=== PATIENT | female | born 1985 | race Hispanic/Latino ===

== ENCOUNTER 2016-04-22 09:30 | Emergency (ER) ==
[2016-04-22 09:46] VITALS: BP 142/75
[2016-04-22] MEDS ORDERED: PHENERGAN IM ONE (10:25)
[2016-04-22] MEDS ORDERED: BENADRYL IM ONE (10:25)
[2016-04-22] MEDS ORDERED: TORADOL IM ONE (10:25)
--- NOTE | 2016-04-22 10:31 | PROVIDER DOCUMENTATION ---
HPI-EENT General - General Chief Complaint: Facial Pain Stated Complaint: FACIAL NUMBNESS/EYE COMPLAINT Time Seen by Provider: 04/22/16 10:01 Source: patient Allergies/Adverse Reactions: Patient Allergies Allergy/AdvReac Type Severity Reaction Status Date / Time No Known Allergies Allergy Verified 10/07/14 10:03 Home Medications: Home Medication List Medication Instructions Recorded Confirmed Last Taken Type Amoxicillin/Pot Clavulanate 875 mg PO Q12HR #14 tablet 04/22/16 Unknown Rx [Augmentin] Fluticasone 50 Mcg Nasal [place] 1 spray LIS DAILY #1 bottle 04/22/16 Unknown Rx [Flonase] Loratadine/Pse E.r. 24 Hr 1 each PO DAILY #20 tablet 04/22/16 Unknown Rx [Claritin-D 24 Hr] - History of Present Illness-EENT General Nature of Presenting Problem: 30 y/o F c/o L sided facial pain x 1 day. Pt states L frontal and maxillary region painful. Denies any fever, cough, congestion, rhinorrhea, hx of GORDON, photophobia, vision changes, N/V, abd. pain. States pain 9/10. Review of Systems - Adult - REVIEW OF SYSTEMS - ADULT Constitutional: reports: no symptoms reported. denies: chills, fever Eyes: reports: see HPI, eye pain. denies: decreased vision, blurred vision, double vision Ears, Nose, Mouth & Throat: reports: no symptoms reported. denies: sinus problem, nose pain, loose teeth, throat pain Cardiovascular: reports: no symptoms reported Respiratory: reports: no symptoms reported. denies: cough, shortness of breath Gastrointestinal: reports: no symptoms reported. denies: abdominal pain, nausea , vomiting Genitourinary: reports: no symptoms reported. denies: dysuria, frequency Musculoskeletal: reports: no symptoms reported. denies: joint pain, joint swelling Integumentary: reports: no symptoms reported. denies: nail changes, rash Neurological: reports: no symptoms reported. denies: numbness, paresthesia Psychiatric: reports: no symptoms reported Endocrine: reports: no symptoms reported. denies: cold intolerance, heat intolerance Hematologic/Lymphatic: reports: no symptoms reported. denies: easy bruising, prolonged bleeding Allergic/Immunologic: reports: no symptoms reported All Other Systems: Reviewed and Negative Past History - Adult - PAST MEDICAL HISTORY-ADULT Review of Records: reports: Nursing Assessment Review, Medications Reviewed Major Childhood Illnesses: reports: denies history Cardiovascular: reports: denies history Respiratory: reports: denies history Gastrointestinal: reports: denies history Obstetrical/Gynecological: reports: denies history Genitourinary: reports: denies history Musculoskeletal: reports: denies history Neurological: reports: denies history Endocrine/Immune: reports: denies history Other Conditions: reports: denies history - SOCIAL HISTORY Smoking: denies Living Situation: family Physical Exam- EENT - Physical Exam EENT Initial Vital Signs Reviewed: Yes General Appearance: alert, mild distress Eye Exam: bilateral eye: normal inspection, PERRL, EOMI Ear Exam: bilateral ear: auricle normal Nasal Exam: normal inspection, sinus tenderness (L frontal, maxillary) Throat Exam: pharynx normal Neck: supple, normal inspection. negative: lymphadenopathy Respiratory: lungs clear, normal breath sounds. negative: crackles, rales, rhonchi, stridor, wheezing Cardiovascular: regular rate, rhythm. negative: bradycardia, tachycardia Back Exam: normal inspection Extremity: normal gait, normal inspection Integumentary: normal color, normal turgor, warm/dry Neurologic: negative: aphasia, EOM palsy, facial droop, sensory deficit Psych/Mental Status: normal mood/affect, normal thought content, normal thought process, oriented x 3 Progress - XRAY 1 XRAY Study: other (sinus) XRAY Interpretation: mucosal thicking in maxillary sinus, L>R Departure - Departure Time of Disposition Order: 11:37 DIAGNOSIS: Sinusitis Qualifiers: Sinusitis location: maxillary Chronicity: acute Recurrence: not specified as recurrent Qualified Code(s): J01.00 - Acute maxillary sinusitis, unspecified Disposition: HOME 01 Certified Medical Emergency: Emergent Condition: Stable Additional Instructions: Take medications as directed. Follow up with specialist for further management. drink plenty of fluids. Tylenol or motrin for pain/fever. ED Follow Up Instructions: You have been treated by a care provider in the Emergency Department. These instructions are being provided to you so you can have an understanding of how to care for yourself upon discharge. Upon discharge from the Emergency Department, you are responsible for making arrangements for follow-up care by a physician of your choice. Take all prescribed medications as directed. Return to the Emergency Department immediately for any new or worsening symptoms. You may call the Physician Referral phone number at [phone] to obtain a list of Physicians who are taking new patients. Prescriptions: Amoxicillin/Pot Clavulanate [Augmentin] 875 mg PO Q12HR #14 tablet Loratadine/Pse E.r. 24 Hr [Claritin-D 24 Hr] 1 each PO DAILY #20 tablet Fluticasone 50 Mcg Nasal [place] [Flonase] 1 spray LIS DAILY #1 bottle Referrals: Bo Adams MD [Primary Care Provider] - Morales Maldonado MD [STAFF PHYSICIAN] - Attestation - Physician/ MARILEE Attestation Patient care was provided by Advanced Practice Provider:: Yes Advanced Practice Provider:: Kelley Smith Advanced Practice Provider documentation review:: The Mid-level provider documentation, treatment plan and medical decision making was reviewed by the physician who agrees with all treatment and medical decision making by the MLP.
[2016-04-22] MEDS ORDERED: PHENERGAN ONE (10:45)
[2016-04-22] MEDS ORDERED: EPINEPHRINE ONE (12:23)
--- NOTE | 2016-04-22 14:50 | Diag Imaging Result Document ---
PROCEDURE NAME: SINUSES - 04/22/2016 SINUS SERIES 3 VIEWS: FINDINGS: There is mucosal thickening in both maxillary sinuses. The ethmoid, frontal and sphenoid sinuses appear to be clear. IMPRESSION: Chronic maxillary sinusitis.
== END 2016-04-22 11:49 | disposition home or self-care (01) ==
LOC: P.ED 09:30
DX: J01.00 Acute maxillary sinusitis, unspecified (principal); R51 Headache
CPT/HCPCS: 70220; 96372; J0171; J1200; J1885; J2550

== ENCOUNTER 2016-09-13 16:44 | Inpatient (IN) ==
[2016-09-13 17:40] LABS: URINE SOURCE VOIDED
[2016-09-13 17:44] LABS: BILIRUBIN URINE NEGATIVE (NEGATIVE); BLOOD URINE NEGATIVE (NEGATIVE); CLARITY CLEAR (CLEAR); COLOR YELLOW; LEUKOCYTES URINE NEGATIVE (NEGATIVE); NITRITE URINE NEGATIVE (NEGATIVE); UROBILINOGEN URINE NORMAL
[2016-09-13] MEDS ORDERED: LABETALOL IV PRN (18:15)
[2016-09-13 19:24] LABS: MANUAL DIFF NEEDED? NO
[2016-09-13 19:33] LABS: BASO% 0.1 % (0.0-0.8); EOS# 0.19 X1000 (0.0-0.7); EOS% 1.7 % (0.0-10.0); HEMATOCRIT 38.8 % (37.0-47.0); HEMOGLOBIN 13.2 g/dL (12.0-16.0); IMM GRAN# 0.02 X1000 (0.0-0.04); IMM GRAN% 0.2 % (0.0-0.5); LYMPH# 1.98 X1000 (1.2-3.4); LYMPH% 17.2 % (20.5-51.1); MCH 26.8 PG (27-31); MCV 78.9 FL (81-99); MONO# 0.83 X1000 (0.11-0.59); MONO% 7.2 % (1.7-9.3); NEUT% 73.6 % (42.2-75.2); PLT 238 X1000 (130-400); RBC 4.92 XMIL (4.2-5.4)
--- NOTE | 2016-09-13 19:41 | HISTORY AND PHYSICAL ---
CHIEF COMPLAINT: Sent from clinic secondary to uncontrolled diabetes. HISTORY OF PRESENT ILLNESS: This is a 31-year-old, G6, P5-0-0-5 with intrauterine around 33+ 3 weeks by late dating at 29 weeks and 3 days, who presented to [facility] after being sent from clinic for uncontrolled diabetes. The patient was maintained on metformin, however, recent A1c was 7 and diabetic log revealed consistently elevated blood glucose levels. The patient has had limited care with this , with initial presentation at 29 weeks and 3 days. Initial 24 hour urine secondary to albuminuria, history of diabetes and high blood pressure was not performed secondary to patient noncompliance. Patient has good movement. No loss of fluid. No vaginal bleeding. No contractions. She denies headaches, vision changes, right upper quadrant pain. On presentation, the patient's blood pressure was in the high systolic 170s and has run consistently elevated. OBSTETRICAL HISTORY: The patient has had 2 full-term vaginal deliveries and 3 sections. RAMP LEAD HISTORY: Patient denies history of sexually transmitted infections. PAST MEDICAL HISTORY: Obesity, likely type 2 diabetes, possible chronic hypertension. PAST SURGICAL HISTORY: delivery x3. MEDICATIONS: Metformin 500 mg 1 tab p.o. b.i.d. now discontinued, vitamins. ALLERGIES: No known drug allergies. SOCIAL HISTORY: Denies alcohol, tobacco or illicit drug use. FAMILY HISTORY: Significant for hypertension and cardiovascular disease. PHYSICAL EXAMINATION: GENERAL: Well-developed, well-nourished, female, in no acute distress. HEENT: Pupils equally round, reactive to light. Extraocular muscles intact. CHEST: Clear to auscultation bilaterally. CARDIOVASCULAR: Regular rate and rhythm. No murmurs, rubs, or gallops. ABDOMEN: Soft, nontender, gravid. No right upper quadrant tenderness to palpation. EXTREMITIES: No clubbing, cyanosis, or edema. SKIN: No focal lesions. NEUROLOGIC: No focal deficits. DTRs 2+. ASSESSMENT AND PLAN: 1. Intrauterine around 33+ 3 weeks by late dating. 2. Likely type 2 diabetes, uncontrolled. 3. Gestational hypertension versus chronic hypertension, rule out superimposed preeclampsia. 4. Limited care. 5. History of section x3. PLAN: Start a split mix insulin regimen as follows: 44 units of NPH insulin in the morning, 16 units at bedtime, regular insulin 22 units in the morning and 16 units at dinnertime. We will maintain Accu-Cheks q.4 hours. We will start ADA diet. Rule out preeclampsia labs are currently pending. We will start labetalol 200 b.i.d. and titrate up as needed, and use IV labetalol as needed. Should blood pressures present higher than 160/110 preeclampsia, we will start magnesium sulfate. cc: Bo Adams MD
[2016-09-13 19:45] LABS: AGAP 12; ALKALINE PHOSPHATASE 105 U/L (32-104); BUN 14 mg/dL (8-22); CALCIUM 8.8 mg/dL (8.8-10.2); CHLORIDE 103 mmol/L (98-107); COSMO 272; GOT 9 U/L (10-30); GPT 11 U/L (10-36); POTASSIUM 4.2 mmol/L (3.5-5.1); SODIUM 135 mmol/L (136-145); TCO2 20 mmol/L (25-35); URIC ACID 4.1 mg/dL (2.4-5.7)
[2016-09-13] MEDS: TRANDATE PO SCH (21:43)
[2016-09-13] MEDS: HUMULIN N INSULIN (PARKWAY) SUBQ SCH (21:44)
[2016-09-13 23:31] LABS: LDH 140 U/L (135-214)
[2016-09-14] MEDS: HUMULIN R (PARKWAY) SUBQ SCH (08:20)
[2016-09-14] MEDS: HUMULIN N INSULIN (PARKWAY) SUBQ SCH ×3 (09:21→21:20)
[2016-09-14] MEDS: TRANDATE PO SCH ×2 (09:24→21:20)
[2016-09-14] MEDS ORDERED: TYLENOL PO PRN (09:43)
[2016-09-14] MEDS ORDERED: HUMULIN R (PARKWAY) SUBQ SCH (17:00)
[2016-09-15 08:03] VITALS: BP 146/80
[2016-09-15 08:10] LABS: UR CREATININE 161.9 mg/dL (11-20); UR CREATININE TOTAL 1942.8 mg/24 (600-1600)
[2016-09-15 08:20] LABS: UR PROTEIN 337.2 mg/dL
[2016-09-15] MEDS: HUMULIN R (PARKWAY) SUBQ SCH (09:18)
[2016-09-15] MEDS: HUMULIN N INSULIN (PARKWAY) SUBQ SCH (09:19)
[2016-09-15] MEDS: TRANDATE PO SCH (09:19)
[2016-09-15] MEDS ORDERED: GLUCOPHAGE PO SCH (17:00)
--- NOTE | 2016-09-15 17:50 | DISCHARGE SUMMARY ---
ADMISSION DATE: 09/14/2016 DISCHARGE DATE: 09/15/2016 ADMIT DIAGNOSES: 1. at 33-1/2 weeks. 2. Diabetes poorly controlled. 3. Hypertension. CONDITION: Stable. DIET: 2200 calorie ADA diet. Low salt. MEDICATIONS: vitamins with iron. Labetalol 200 twice a day. NPH 44 in the morning, 16 in the evening and regular 22 at breakfast and 16 at supper. She is to follow up next week for an appointment. Please refer to Ms. Garcia's records. She was admitted with uncontrolled sugars, elevated hemoglobin A1c and hypertension. She was admitted and started on 24 hour urine. Blood pressure was high so she was given labetalol 200 twice a day with good results and she was started on an insulin regimen which very easily controlled her sugars so now she is hospital day 3 with good insulin control, blood pressure control, desiring discharge. PHYSICAL EXAM: Neck: Supple. Lungs: Clear. Heart: Regular sinus rhythm. Abdomen: Gravid. Fundal height of 34. +2 lower extremity edema. PERTINENT LABORATORY VALUES: From hospital stay, hemoglobin and hematocrit of 13/38, platelets of 238,000. Her BUN and creatinine are normal at 14 and 0.5. Liver functions are normal. Uric acid is normal and blood glucose has been well controlled on the above insulin regimen. 24 hour urine showed total volume of 1200 with 4 g of glucose spillage. That is up slightly from 2 weeks ago when she spilled 3+ g protein. As blood pressure has normalized and no other evidence of preeclampsia I think this is more of a chronic issue for her so we will discharge with above instructions. cc: Jony Irvin MD
== END 2016-09-15 13:00 | disposition home or self-care (01) ==
LOC: P.NBC 16:44 → P.LD 17:02
PROVIDERS: ADMIT Obstetrics & Gynecology; ATTEND Obstetrics & Gynecology

== ENCOUNTER 2016-10-03 04:58 | Inpatient (IN) ==
--- NOTE | 2016-10-03 04:06 | HISTORY AND PHYSICAL ---
HISTORY OF PRESENT ILLNESS: Patient is a 31-year-old, G6, P5-0-0-5 with intrauterine at 36 weeks and 2 days. Patient with a history of pregestational diabetes poorly controlled as well as hypertension. Patient with testing for lung maturity that returned suggestive of mature lung so the decision made to proceed with repeat section with bilateral tubal ligation. PAST MEDICAL HISTORY: Diabetes, hypertension. PAST SURGICAL HISTORY: section x2. OBSTETRICAL HISTORY: 1. Spontaneous vaginal delivery x2. 2. section x3. 3. History of prior section. POWER AND RECOVERY SHIFT ENGINEER HISTORY: Denies history of dysplasia. SOCIAL HISTORY: No tobacco use. PHYSICAL EXAMINATION: VITAL SIGNS: Patient afebrile. Blood pressure is mildly elevated. Vital signs stable otherwise. GENERAL: The patient in no acute distress. LUNGS: Respirations nonlabored. ABDOMEN: Soft, gravid, nontender to palpation. ASSESSMENT AND PLAN: A 31-year-old, G6, P5, with poorly controlled pregestational diabetes and chronic hypertension. We will proceed to the operating room for repeat section with bilateral tubal ligation. cc: Cyndi Vincent MD
[2016-10-03] MEDS ORDERED: KEFZOL 1 GM/D5W 1 GM/50 ML IVPB IV PRN (05:02)
[2016-10-03] MEDS: LR 1,000 ML IV SCH ×2 (05:50→07:01)
[2016-10-03] MEDS ORDERED: PEPCID IV ONE (06:00)
[2016-10-03] MEDS ORDERED: BICITRA PO ONE (06:00)
[2016-10-03 06:06] LABS: MANUAL DIFF NEEDED? NO; URINE SOURCE VOIDED
[2016-10-03 06:09] LABS: BASO% 0.1 % (0.0-0.8); EOS# 0.21 X1000 (0.0-0.7); EOS% 1.9 % (0.0-10.0); HEMATOCRIT 40.1 % (37.0-47.0); HEMOGLOBIN 13.5 g/dL (12.0-16.0); IMM GRAN# 0.04 X1000 (0.0-0.04); IMM GRAN% 0.4 % (0.0-0.5); LYMPH# 2.08 X1000 (1.2-3.4); LYMPH% 18.9 % (20.5-51.1); MCH 26.7 PG (27-31); MCHC 33.7 g/dL (33-37); MCV 79.4 FL (81-99); MONO# 0.79 X1000 (0.11-0.59); MONO% 7.2 % (1.7-9.3); MPV 13.2 FL (7.4-10.4); NEUT% 71.5 % (42.2-75.2); PLT 219 X1000 (130-400); RBC 5.05 XMIL (4.2-5.4)
[2016-10-03 06:10] LABS: BILIRUBIN URINE NEGATIVE (NEGATIVE); BLOOD URINE TRACE (NEGATIVE); CLARITY CLEAR (CLEAR); COLOR YELLOW; GLUCOSE URINE NEGATIVE (NEGATIVE); LEUKOCYTES URINE TRACE (NEGATIVE); NITRITE URINE NEGATIVE (NEGATIVE); PH URINE 6.5; UROBILINOGEN URINE NORMAL
[2016-10-03] MEDS ORDERED: DURAMORPH ONE (07:24)
[2016-10-03] MEDS ORDERED: PITOCIN ONE (07:53)
[2016-10-03] MEDS ORDERED: ROBINUL ONE ×2 (07:55→08:46)
[2016-10-03] MEDS ORDERED: NEO-SYNEPHRINE ONE (08:46)
[2016-10-03] MEDS ORDERED: AMBIEN PO PRN (08:49)
[2016-10-03] MEDS ORDERED: DEMEROL PO PRN ×2 (08:49)
[2016-10-03] MEDS ORDERED: MYLICON PO PRN (08:49)
[2016-10-03] MEDS ORDERED: DULCOLAX PR PRN (08:49)
[2016-10-03] MEDS ORDERED: PITOCIN IM PRN (08:49)
[2016-10-03] MEDS ORDERED: PHENERGAN IM PRN (08:49)
[2016-10-03] MEDS ORDERED: BOOSTRIX VACCINE IM ONE (08:49)
[2016-10-03] MEDS ORDERED: HYDROXYZINE IM PRN (08:49)
[2016-10-03] MEDS ORDERED: CYTOTEC PO PRN (08:49)
[2016-10-03] MEDS ORDERED: NORCO-5 PO PRN (08:49)
[2016-10-03] MEDS ORDERED: HYDROXYZINE PO PRN (08:49)
[2016-10-03] MEDS ORDERED: M-M-R II VACCINE SUBQ ONE (08:49)
[2016-10-03] MEDS ORDERED: DEMEROL IM PRN (08:49)
[2016-10-03] MEDS ORDERED: PITOCIN 20 UNITS/LR 20 UNITS/1,000 ML IV.SOLN IV ONE (08:49)
[2016-10-03] MEDS ORDERED: NARCAN INJ PRN (09:14)
[2016-10-03] MEDS ORDERED: BENADRYL IV PRN (09:14)
[2016-10-03] MEDS ORDERED: ZOFRAN ODT PO PRN (09:14)
[2016-10-03] MEDS ORDERED: ZOFRAN IV PRN ×2 (09:14)
[2016-10-03] MEDS ORDERED: MORPHINE IV PRN (09:15)
[2016-10-03] MEDS ORDERED: TORADOL IV PRN (09:15)
[2016-10-03] MEDS: MYLICON PO SCH ×4 (09:43→20:12)
[2016-10-03] MEDS ORDERED: HUMULIN R (PARKWAY) SUBQ ONE (09:44)
[2016-10-03] MEDS: TRANDATE PO SCH ×3 (09:57→17:39)
[2016-10-03] MEDS: PITOCIN 10 UNITS/LR 10 UNIT/1,000 ML IV.SOLN IV SCH (20:12)
[2016-10-03] MEDS: PERICOLACE PO SCH (20:12)
[2016-10-04] MEDS: PITOCIN 10 UNITS/LR 10 UNIT/1,000 ML IV.SOLN IV SCH (04:29)
[2016-10-04] MEDS: NORCO-10 PO PRN ×4 (06:06→23:50)
[2016-10-04] MEDS: MOTRIN PO PRN ×2 (06:06→23:51)
[2016-10-04 06:14] LABS: HEMATOCRIT 36.3 % (37.0-47.0); MCH 26.7 PG (27-31); MCHC 33.1 g/dL (33-37); MCV 80.7 FL (81-99); MPV 13.2 FL (7.4-10.4); RBC 4.5 XMIL (4.2-5.4)
[2016-10-04] MEDS: MYLICON PO SCH ×4 (08:49→21:22)
[2016-10-04] MEDS ORDERED: LR 1,000 ML IV SCH (08:49)
[2016-10-04] MEDS: TRANDATE PO SCH ×3 (08:50→17:18)
[2016-10-04] MEDS ORDERED: HUMULIN R (PARKWAY) SUBQ SCH (16:15)
[2016-10-04] MEDS: PERICOLACE PO SCH (21:22)
--- NOTE | 2016-10-05 08:29 | DISCHARGE SUMMARY ---
ADMISSION DATE: 10/03/2016 DISCHARGE DATE: 10/05/2016 PRINCIPAL DIAGNOSES: 1. Term intrauterine . 2. Previous section. 3. Chronic hypertension. PRINCIPAL PROCEDURE: 1. Repeat low transverse section. 2. Bilateral tubal ligation. HOSPITAL COURSE: The patient was admitted by Dr. Vincent and underwent a repeat section and tubal ligation. She had a female born weighing 6 pounds 1 ounce. Postoperatively she did well. Postop hematocrit was 36. Blood pressure remained stable on labetalol. At this time she is discharged home. DISCHARGE MEDICATIONS: Labetalol and Percocet for pain. FOLLOW UP: She will be followed up in the office in a week. DISCHARGE INSTRUCTIONS: Discharge instructions were given. cc: MD Cyndi Figueroa MD
[2016-10-05] MEDS: MOTRIN PO PRN ×2 (08:49→18:34)
[2016-10-05] MEDS: TRANDATE PO SCH ×4 (08:50→19:10)
[2016-10-05] MEDS: NORCO-10 PO PRN ×3 (08:50→18:34)
[2016-10-05] MEDS: MYLICON PO SCH ×4 (08:50→20:21)
[2016-10-05] MEDS: HUMULIN R (PARKWAY) SUBQ SCH ×2 (18:46→21:10)
[2016-10-05] MEDS: PERICOLACE PO SCH (20:21)
[2016-10-06] MEDS: NORCO-10 PO PRN ×2 (09:13→14:16)
[2016-10-06] MEDS: TRANDATE PO SCH ×2 (09:13→14:16)
[2016-10-06] MEDS: MOTRIN PO PRN (09:13)
[2016-10-06] MEDS: HUMULIN R (PARKWAY) SUBQ SCH ×2 (09:14→14:17)
[2016-10-06] MEDS: MYLICON PO SCH ×2 (09:14→14:17)
[2016-10-06 13:56] VITALS: BP 148/74
--- NOTE | 2016-10-11 09:42 | OPERATIVE NOTE ---
PROCEDURE DATE: 10/11/2016 PREOPERATIVE DIAGNOSES: 1. Intrauterine at 36 weeks and 2 days. 2. Poorly controlled pregestational diabetes. 3. Prior section times 3. POSTOPERATIVE DIAGNOSES: 1. Intrauterine at 36 weeks and 2 days. 2. Poorly controlled pregestational diabetes. 3. Prior section times 3. PROCEDURE: Repeat low segment transverse section with bilateral tubal ligation. SURGEON: Cyndi Vincent MD REGIONAL CLIMATE CHANGE ANALYST: John Harrison MD ANESTHESIA: Spinal. ESTIMATED BLOOD LOSS: 500 mL. COMPLICATIONS: None. COUNTS: Correct x2. FINDINGS: Viable female , weighing 6 pounds 1 ounce with 's of 9 and 10. The patient was noted to have adhesions of the bladder to the lower uterine segment. Otherwise, grossly normal-appearing tubes and ovaries. She was noted to have moderate adhesions of the fimbria to the ovaries bilaterally. INDICATIONS FOR PROCEDURE: Patient is a 31-year-old, G6, P5 with intrauterine at 36 weeks and 2 days. History is significant for prior x3 and poorly controlled pregestational diabetes. The patient had amniocentesis with documented lung maturity, so the decision made to proceed to the operating room for repeat section and bilateral tubal ligation. The risks, benefits, and alternatives were discussed with patient and she desires to proceed. PROCEDURE IN DETAIL: After proper informed consent was obtained, patient was taken to the operating room and placed in the dorsal supine position with adequate spinal anesthesia. The abdomen was prepped and draped in normal sterile fashion for abdominal surgery. After proper time- out was performed, a low transverse incision was made over prior scar using a scalpel. This was carried down to the underlying fascia, which was scored in the midline. Fascial incision was extended laterally and cephalic using Paulson scissors. Inferior aspect of the fascial defect was grasped with Shalom clamps and dissected off the underlying rectus abdominis muscle. Similar was carried out on the superior aspect of the fascial defect. The muscles were bluntly in the midline. Peritoneum was entered bluntly and stretched using the brick setter operator's hand. At this time adhesions of the bladder to the lower uterine segment were encountered. The bladder blade was placed to protect the bladder. A low transverse incision was made on the uterus and stretched using the brick setter operator's hand. The infant was delivered in the vertex presentation. Cord was double clamped and cut and infant was handed off to waiting pediatric staff. The uterus exteriorized and cleared free of all clot and debris. The hysterotomy was reapproximated using #1 chromic in a running, locking fashion with additional [id number] sutures for added hemostasis. Attention was then turned to bilateral tubal ligation. The left fallopian tube was grasped, carried out to the fimbria. The mid-isthmic portion was then grasped with a Seymour clamp and double suture ligated and the loop portion was excised. Similar was carried out to the left fallopian tube. Hemostasis noted bilaterally. The uterus was returned to the abdomen. The pericolic gutters were cleared free of all clot and debris. The hysterotomy was reinspected and noted to be hemostatic. The peritoneum was then reapproximated using 3-0 chromic in a running, continuous fashion. The muscles were inspected and made hemostatic using Bovie electrocautery. The fascia was reapproximated using #1 PDS in a running, continuous fashion. Subcutaneous tissue was made hemostatic using Bovie electrocautery. The subcutaneous tissue was reapproximated using 3-0 chromic in a running, continuous fashion. Skin was reapproximated using 4-0 Monocryl in subcuticular fashion. Patient tolerated the procedure well. Transferred to recovery in stable condition. cc: MD TIKA George
== END 2016-10-06 15:30 | disposition home or self-care (01) ==
LOC: P.LD 04:58 → P.WC 13:16
PROVIDERS: ADMIT Obstetrics & Gynecology; ATTEND Obstetrics & Gynecology